=== PATIENT | female | born 1995 | race Hispanic/Latino ===

== ENCOUNTER 2025-06-15 21:17 | Emergency (ER) | payer OTHER ==
[~2025-06-15] VITALS: Ht 157.5 cm; Wt 74.4 kg
[2025-06-15 21:20] VITALS: BP 111/75; PULSE 74; RESP 20; TEMP 98.8
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
--- NOTE | 2025-06-15 23:29 | NUR ---
FINGER SPLINT APPLIED TO L 4TH FINGER, PATIENT TOLERATED WELL
--- NOTE | 2025-06-15 23:37 | HMCIMG ---
EXAM: CR left Hand, 3 View. CLINICAL HISTORY: severe left ring finger pain COMPARISON: None provided. FINDINGS: BONES: Fracture of the fourth digit middle phalanx JOINTS: No evidence of dislocation. The joint spaces are normal. SOFT TISSUES: The soft tissues appear within normal limits. No radiopaque foreign body is seen. IMPRESSION: Acute fracture of the fourth middle phalanx /[place]
== END 2025-06-15 23:33 | disposition home or self-care (01) ==
LOC: EDH 21:17 → EEVIPCON 21:17 → EDH 23:33
DX: S62.625A Displaced fracture of middle phalanx of left ring finger, initial encounter for closed fracture (principal); S60.512A Abrasion of left hand, initial encounter; F12.10 Cannabis abuse, uncomplicated; F14.10 Cocaine abuse, uncomplicated; F17.200 Nicotine dependence, unspecified, uncomplicated; Y04.0XXA Assault by unarmed brawl or fight, initial encounter; Y93.89 Activity, other specified; Y92.89 Other specified places as the place of occurrence of the external cause; Y99.8 Other external cause status
CPT/HCPCS: 99284; 90714; 73130; 96372; 90471; 29130; J1885

== ENCOUNTER 2025-06-22 20:37 | Emergency (ER) | payer OTHER ==
[~2025-06-22] VITALS: Ht 157.5 cm; Wt 68.0 kg
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
[2025-06-22 21:07] LABS: IMMATURE GRANULOCYTE ABSOLUTE 0.03 K/uL (0-1); NUCLEATED RED BLOOD CELLS 0.0 % (0.0-0.19); PLATELET COUNT (AUTO) 386 K/uL (130-400); RED BLOOD CELL COUNT(AUTO) 4.24 MIL/uL (4.00-5.50); RED CELL DISTRIBUTION WIDTH 12.4 % (11.0-15.5); WHITE BLOOD COUNT (AUTO) 10.6 K/uL (4.8-10.8)
[2025-06-22 21:18] LABS: CREATININE 0.5 mg/dL (0.5-1.0); GLOMERULAR FILTR. RATE CALC 129.0 mL/min (>90); GLUCOSE,RANDOM 113.0 mg/dL (70-105); SODIUM SERUM 141.0 mmol/L (136-145); UREA NITROGEN, BLOOD 15.0 mg/dL (7-18)
--- NOTE | 2025-06-22 21:35 | NUR ---
PATIENT ASKED FOR URINE SAMPLE
[2025-06-22 21:45] LABS: APPEARANCE,URINE CLOUDY (CLEAR); GLUCOSE, URINE (UA) NEGATIVE (NEGATIVE); LEUKOCYTE ESTERASE ,URINE 500 Leu/uL (NEGATIVE); NITRATE,URINE NEGATIVE (NEGATIVE); OCCULT BLOOD,URINE SMALL (NEGATIVE)
[2025-06-22 21:46] LABS: ADD UA MICROSCOPIC YES
[2025-06-22 21:49] LABS: SQUAMOUS EPITHELIAL CELL,UR FEW /HPF (0-2)
[2025-06-22 22:05] LABS: ASPARTATE AMINOTRANSFERASE 40.0 U/L (10-37); TOTAL PROTEIN, SERUM 7.2 g/dL (6.0-8.3)
[2025-06-22] MEDS ORDERED: ONDA-243 PO (23:03)
[2025-06-22] MEDS ORDERED: NITR100C PO (23:03)
[2025-06-22] MEDS ORDERED: PHEN-775 PO (23:03)
[2025-06-22 23:59] VITALS: BP 102/76; PULSE 84; RESP 16; TEMP 98.2; O2SAT 100
== END 2025-06-23 00:04 | disposition home or self-care (01) ==
LOC: EDH 20:37 → EEVIPCON 20:37 → EDH 06-23 00:04
DX: N92.6 Irregular menstruation, unspecified (principal); N39.0 Urinary tract infection, site not specified; F17.200 Nicotine dependence, unspecified, uncomplicated; F10.90 Alcohol use, unspecified, uncomplicated
CPT/HCPCS: 99284; 96365; 96375; 80076; 80048; 84703; 83690; 85025; 87086 ×2; 87186; 81001; 36415; J1885; J0696